=== PATIENT | female | born 2000 | race Caucasian/White ===

== ENCOUNTER 2021-08-21 16:30 | Inpatient (IN) | payer OTHER ==
[~2021-08-21] VITALS: Ht 160 cm; Wt 103.9 kg
[~2021-08-21 16:30] MED LIST: CEFUROXIME500 MG PO; EXPECTORANT200 MG PO; FLONASE 0.05% N16 GM; IBUPROFEN600 MG PO; PREDNISONE 50 M50 MG PO; PYRIDIUM200 MG PO
[2021-08-21 18:10] LABS: HEMOGLOBIN 12.4 gm/dl (12.3-15.3); RED BLOOD COUNT 4.38 M/UL (4.00-5.10); WHITE BLOOD COUNT 10.1 K/UL (4.5-11.0)
[2021-08-23] MEDS ORDERED: HYDROCODONE-AC1 EACH PO (11:28)
[2021-08-23] MEDS ORDERED: IBUPROFEN600 MG PO (11:28)
[2021-08-23] MEDS ORDERED: FEROSUL325 MG PO (11:28)
[2021-08-23] MEDS ORDERED: DOCUSATE SODIU250 MG PO (11:28)
[2021-08-24 05:55] LABS: HEMOGLOBIN 10.4 gm/dl (12.3-15.3)
== END 2021-08-25 12:07 | disposition home or self-care (01) | DRG 786 ==
LOC: GENOP 16:30 → OB 16:51
PROVIDERS: Obstetrics & Gynecology; ADMIT Obstetrics & Gynecology
PROC: 10H07YZ Insertion of Other Device into Products of Conception, Via Natural or Artificial Opening (ICD-10-PCS; 2021-08-23)
PROC: 10D00Z1 Extraction of Products of Conception, Low, Open Approach (ICD-10-PCS; principal; 2021-08-23 10:36)
DX: O36.8330 Maternal care for abnormalities of the fetal heart rate or rhythm, third trimester, not applicable or unspecified (principal); O41.1230 Chorioamnionitis, third trimester, not applicable or unspecified; O99.214 Obesity complicating childbirth; E66.01 Morbid (severe) obesity due to excess calories; O62.1 Secondary uterine inertia; Z37.0 Single live birth; Z3A.39 39 weeks gestation of pregnancy; Z20.822 Contact with and (suspected) exposure to COVID-19
CPT/HCPCS: 36415; 81001; 82800; 85014; 85018; 85025; 90715; C9113; J0290; J0690; J1580; J2001; J2274; J2370; J2405; J2590; J2765; J2795; J7120